=== PATIENT | female | born 1960 | race Caucasian/White ===

== ENCOUNTER → 2017-07-06 | Outpatient (CLI) | payer OTHER ==
--- NOTE | 2017-07-06 10:40 | RAD ---
Exam performed: Ultrasound Evaluation of the left neck. History: Patient haD a dental cleaning in january and the doctor felt a lump. Date of service: 07/06/17. Comparison: None available Discussion: Targeted sonographic evaluation of the left neck was performed and images are obtained. Numerous lymph nodes are seen in the left neck. There is a 0.7 x 0.6 x 2.3 cm normal-appearing lymph node in the area of concern in the left neck. There is also enlarged 1.2 x 0.9 x 0.3 cm lymph node posterior to the area of concern. There are several lymph nodes anterior to the area of concern, largest one measuring up to 1.1 cm. No abnormal fluid collections or masses seen. Impression: Multiple mildly enlarged lymph nodes seen in the left neck corresponding to the area of concern. These may be followed up clinically. Ultrasound follow-up may also be performed if these persist or enlarge in size.
== END | disposition home or self-care (01) ==
LOC: US 09:44
PROVIDERS: ATTEND Nurse Practitioner Family
DX: R59.0 Localized enlarged lymph nodes (principal); E11.65 Type 2 diabetes mellitus with hyperglycemia; E03.9 Hypothyroidism, unspecified; I10 Essential (primary) hypertension; E78.00 Pure hypercholesterolemia, unspecified; E55.9 Vitamin D deficiency, unspecified
CPT/HCPCS: 76536

== ENCOUNTER → 2017-08-11 | Outpatient (CLI) | payer OTHER ==
--- NOTE | 2017-08-11 15:00 | RAD ---
Bilateral lower extremity arterial ultrasound with MARIBEL measurements, 08/11/2017: History: Peripheral vascular disease, claudication Duplex evaluation of the major arteries in both lower extremities was performed including grayscale, color-flow and spectral Doppler analysis. Resting MARIBEL range were also obtained. There are mild to moderate scattered atherosclerotic plaques. The right common femoral artery demonstrates a triphasic Doppler waveform. The right superficial femoral and popliteal Doppler waveforms are also triphasic. No significant focal velocity elevation is seen to suggest high-grade focal stenosis. Patent anterior tibial, posterior tibial and peroneal arteries are present in the right calf demonstrating biphasic Doppler waveforms. The right dorsalis pedis waveform is also biphasic. A normal resting MARIBEL measurement of 1.1 was obtained on the right. The left common femoral artery demonstrates a triphasic Doppler waveform. The left superficial femoral and popliteal Doppler waveforms are predominantly triphasic. No significant focal velocity acceleration is seen in these vessels to suggest high-grade focal stenosis. Patent posterior tibial, anterior tibial and peroneal arteries are present in the left lower leg demonstrating predominantly biphasic Doppler waveforms. The left dorsalis pedis artery demonstrates a good biphasic Doppler waveform. The resting MARIBEL measurement on the left of 0.89 is at the lower limits of normal. IMPRESSION: 1. Mild to moderate scattered atherosclerotic plaquing without evidence of high-grade focal arterial stenosis. 2. Resting MARIBEL measurements of 1.1 on the right and 0.89 on the left.
== END | disposition home or self-care (01) ==
LOC: US 12:32
PROVIDERS: ATTEND Podiatrist Foot & Ankle Surgery
DX: I70.203 Unspecified atherosclerosis of native arteries of extremities, bilateral legs (principal); E11.65 Type 2 diabetes mellitus with hyperglycemia; I10 Essential (primary) hypertension; E03.9 Hypothyroidism, unspecified
CPT/HCPCS: 93922; 93925

== ENCOUNTER → 2017-08-13 | Outpatient (CLI) | payer OTHER ==
--- NOTE | 2017-08-13 12:27 | RAD ---
DATE: 08/13/2017 EXAM: MAMMO GISELE SCREENING BILATERAL HISTORY: Routine screening COMPARISON: 08/26/2016 This study was interpreted with the benefit of Computerized Aided Detection (CAD). The breast parenchyma shows scattered fibroglandular densities. Breast parenchyma level B. FINDINGS: 2-D and 3-D tomosynthesis imaging was performed in CC and MLO projections. A tiny lobulated nodule in the posterolateral aspect of the right breast is unchanged since multiple previous studies. No new or enlarging breast densities are seen. No suspicious microcalcifications are evident. IMPRESSION: There is no mammographic evidence of malignancy in either breast. BI-RADS CATEGORY: 2 BENIGN FINDING(S) RECOMMENDED FOLLOW-UP: 12M 12 MONTH FOLLOW-UP PQRS compliance statement: Patient information was entered into a reminder system with a target due date for the next mammogram. Mammography is a sensitive method for finding small breast cancers, but it does not detect them all and is not a substitute for careful clinical examination. A negative mammogram does not negate a clinically suspicious finding and should not result in delay in biopsying a clinically suspicious abnormality. "Our facility is accredited by the [employer] Mammography Program."
== END | disposition home or self-care (01) ==
LOC: MAMMO 11:07
PROVIDERS: ATTEND Family Medicine
DX: Z12.31 Encounter for screening mammogram for malignant neoplasm of breast (principal)
CPT/HCPCS: 77063; G0202; 77067

== ENCOUNTER → 2018-06-22 | Outpatient (CLI) | payer OTHER ==
--- NOTE | 2018-06-23 08:41 | RAD ---
DATE: 06/22/2018 EXAM: MAMMO GISELE DIANiki BILAT HISTORY: Left breast pain COMPARISON: 08/26/2015, 08/26/2016 and 08/13/2017 screening mammographic exam This study was interpreted with the benefit of Computerized Aided Detection (CAD ). Breast Density: FATTY The breast parenchyma is primarily fatty replaced. Breast parenchyma level density A. FINDINGS: Small focal asymmetries bilaterally are stable compared to prior exams. No new mass. No distortion or suspicious calcification cluster. IMPRESSION: BI-RADS CATEGORY: 2 BENIGN FINDING(S) RECOMMENDED FOLLOW-UP: PQRS compliance statement: Patient information was entered into a reminder system with a target due date 1 year for the next mammogram. Mammography is a sensitive method for finding small breast cancers, but it does not detect them all and is not a substitute for careful clinical examination. A negative mammogram does not negate a clinically suspicious finding and should not result in delay in biopsying a clinically suspicious abnormality. "Our facility is accredited by the [employer] Mammography Program." CASIMIRO
== END | disposition home or self-care (01) ==
LOC: MAMMO 13:06
PROVIDERS: ATTEND Obstetrics & Gynecology
DX: N64.4 Mastodynia (principal); E55.9 Vitamin D deficiency, unspecified; I10 Essential (primary) hypertension; E11.9 Type 2 diabetes mellitus without complications; E78.00 Pure hypercholesterolemia, unspecified; E03.9 Hypothyroidism, unspecified
CPT/HCPCS: 77066; G0279; 77062

== ENCOUNTER → 2018-06-28 | Outpatient (CLI) | payer OTHER ==
--- NOTE | 2018-06-28 16:59 | RAD ---
Neck ultrasound, 06/28/2018: HISTORY: Follow-up lymph nodes The left side of the neck and the submandibular region was examined as requested. Comparison is made to a study from 07/06/2017. Multiple small benign-appearing lymph nodes are present along the left side of the neck. The largest of these demonstrates a short axis dimension of only 4 mm. A larger node with somewhat abnormal architecture seen on the previous study is no longer evident. In the submandibular regions there are also multiple small lymph nodes which are not enlarged by short axis dimension criteria. The largest of these nodes lies near the midline and measures 18 x 11 x 6 mm. Its margins are smooth. It demonstrates a small cystic component centrally which may represent necrosis. IMPRESSION: Multiple left cervical and submandibular lymph nodes are noted without pathologic enlargement. Clinical surveillance is suggested. Electronically signed by: Mendez Wolfe MD (06/28/2018 4:55 PM) [facility]
== END | disposition home or self-care (01) ==
LOC: US 10:52
PROVIDERS: ATTEND Family Medicine
DX: R22.1 Localized swelling, mass and lump, neck (principal)
CPT/HCPCS: 76536

== ENCOUNTER → 2020-07-09 | Outpatient (CLI) | payer OTHER ==
--- NOTE | 2020-07-09 16:24 | RAD ---
EXAM: DUAL ENERGY X-RAY ABSORPTIOMETRY (DEXA). HISTORY: Postmenopausal screening. FINDINGS: The lowest measured T-score is 1.8 in the right femoral neck, based on a bone mineral density of 1.182 g/cm^2. Refer to the worksheets for full detail. No comparison examinations are available. IMPRESSION: Normal. Bone mineral density yields a T-score of -1.0 or greater. Fracture risk is low. FRAX was not calculated. METHODOLOGY: Dual energy x-ray absorptiometry was performed to measure bone mineral density. The following analysis is based on the 2019 Official Positions of the International Society for Clinical Densitometry: Measurements of the hips and the average of L1-L4 are preferred. When the spine and/or hip cannot be feasibly measured or interpreted, or in the setting of hyperparathyroidism, distal radial bone mineral density may be measured. The lumbar spine T-score is based on the average bone mineral density of L1-L4. In the setting of artifact or anatomic abnormality, some lumbar levels may be excluded, and the remaining levels used for calculation. A single lumbar level is not used for diagnosis, and if only a single level is available for assessment, another anatomic site will be used to assign a diagnosis. The hip T-score is based on the bone mineral density measurement of the femoral neck or total proximal femur of either side, whichever is lowest. Bilateral mean values are not used for diagnosis. The forearm T-score is derived from 33% of the distal radius of the nondominant forearm. For postmenopausal and perimenopausal women, and men age 50 or older, of all ethnic groups, T-scores are calculated through comparison of the current measurement with the NHANES III database standard for females aged 20-29 years. The lowest T-score of the evaluated anatomic sites is used to assign a diagnosis based on the World Health Organization densitometric classification. In premenopausal females and males younger than age 50, a Z-score is calculated based on population specific reference data for patient sex and self-reported ethnicity. Electronically signed by: Amanda Simons MD (07/09/2020 4:22 PM) [facility]
--- NOTE | 2020-07-10 14:25 | RAD ---
DATE: 07/09/2020 3:00 PM EXAM: MAMMO GISELE SCREENING BILATERAL HISTORY: Screening COMPARISON: 08/08/2019 Bilateral CC and MLO views of the breasts were performed. Bilateral breast tomosynthesis was performed in CC and MLO projections. This study was interpreted with the benefit of Computerized Aided Detection (CAD). FINDINGS: Breast Density: FATTY The Breast Parenchyma is primarily fatty replaced. Breast parenchyma level density A. No suspicious masses, microcalcifications or architectural distortion is present to suggest malignancy in either breast. The visualized axillae are unremarkable. IMPRESSION: No mammographic evidence of malignancy. BI-RADS CATEGORY: 1 NEGATIVE RECOMMENDED FOLLOW-UP: 12M 12 MONTH FOLLOW-UP Annual screening mammography is recommended, unless clinically indicated sooner based on symptoms or change in physical exam. PQRS compliance statement: Patient information was entered into a reminder system with a target due date for the next mammogram. Mammography is a sensitive method for finding small breast cancers, but it does not detect them all and is not a substitute for careful clinical examination. A negative mammogram does not negate a clinically suspicious finding and should not result in delay in biopsying a clinically suspicious abnormality. "Our facility is accredited by the [employer] Mammography Program."
== END ==
LOC: DXRAD 15:03
PROVIDERS: ATTEND Obstetrics & Gynecology
DX: Z12.31 Encounter for screening mammogram for malignant neoplasm of breast (principal); Z01.419 Encounter for gynecological examination (general) (routine) without abnormal findings; Z78.0 Asymptomatic menopausal state
CPT/HCPCS: 77063; 77067; 77080

== ENCOUNTER 2021-09-29 18:00 | Emergency (ER) | payer BC, OTHER ==
[~2021-09-29] VITALS: Ht 172.7 cm; Wt 127.3 kg
--- NOTE | 2021-09-29 19:53 | RAD ---
XR CHEST 1V History: Reason: SOB / Spl. Instructions: / History: Comparison: None. Findings: Mild ill-defined bibasilar opacities. No pleural effusion. No pneumothorax. Normal heart size. Impression: 1. Mild ill-defined bibasilar opacities, most likely atelectasis. If persistent clinical concern, re commend follow-up. Electronically signed by: Negrito Best DO (09/29/2021 7:50 PM) [facility]
[2021-09-29] MEDS ORDERED: AZIT250T6 PO (20:00)
[2021-09-29] MEDS ORDERED: DEXA4TAB63 PO (20:00)
[2021-09-29 20:02] VITALS: BP 124/55
[2021-09-29] MEDS ORDERED: AZITHROMYCIN 250 MG TABLET. PO ONE (20:15)
[2021-09-29] MEDS ORDERED: DEXAMETHASONE SOD PHOS 10 MG/ML VIAL. PO ONE (20:15)
--- NOTE | 2021-09-29 20:38 | PHYS DOC ---
Past History Additional Past Medical Histor: RBBB Past Surgical History: Cholecystectomy, Hysterectomy Alcohol Use: None General Adult EDM: Chief Complaint: NAUSEA/VOMITING/DIARRHEA HPI: HPI: 61-year-old female presents with fatigue, body aches, congestion, cough for the last 3 or 4 days. Patient had nasal congestion prior to this and was treated for a sinus infection with Augmentin. She is still taking this medication. She came in today because of the profound fatigue and cough. Review of Systems: Review of Systems: Constitutional: Denies fever or chills. Body aches, fatigue Eyes: Denies change in visual acuity HENT: Denies nasal congestion or sore throat Respiratory: Cough without significant shortness of breath Cardiovascular: Denies chest pain or edema GI: Denies abdominal pain, nausea, vomiting, bloody stools or diarrhea : Denies dysuria Musculoskeletal: Denies back pain or joint pain Integument: Denies rash Neurologic: Denies headache, focal weakness or sensory changes Endocrine: Denies polyuria or polydipsia Lymphatic: Denies swollen glands Psychiatric: Denies depression or anxiety Current Medications: Current Meds: Current Medications Medications (Trade) Dose Ordered Sig/Srinivas Start Time Stop Time Status Last Admin Dose Admin Azithromycin (Zithromax) 500 mg 1X ONCE 09/29/21 20:15 09/29/21 20:16 DC Dexamethasone Sodium Phosphate (Decadron) 10 mg 1X ONCE 09/29/21 20:15 09/29/21 20:16 DC Allergies: Allergies: Allergies Coded Allergies Type Severity Reaction Last Updated Verified Sulfa (Sulfonamide Antibiotics) Allergy Intermediate 09/29/21 Yes Physical Exam: PE: Constitutional: Well developed, well nourished, morbidly obese, no acute distress, non-toxic appearance. [] HENT: Normocephalic, atraumatic, bilateral external ears normal, oropharynx moist, no oral exudates, nose normal. [] Eyes: PERRLA, EOMI, conjunctiva normal, no discharge. [] Neck: Normal range of motion, no tenderness, supple, no stridor. [] Cardiovascular: Heart rate regular rhythm, no murmur [] Lungs & Thorax: Bilateral breath sounds clear to auscultation [] Abdomen: Bowel sounds normal, soft, no tenderness, no masses, no pulsatile masses. [] Skin: Warm, dry, no erythema, no rash. [] Back: No tenderness, no CVA tenderness. [] Extremities: No tenderness, no cyanosis, no clubbing, ROM intact, no edema. [] Neurologic: Alert and oriented X 3, normal motor function, normal sensory function, no focal deficits noted. [] Psychologic: Affect normal, judgement normal, mood normal. [] Current Patient Data: Vital Signs: Vital Signs Date Time Temp Pulse Resp B/P (MAP) Pulse Ox O2 Delivery O2 Flow Rate FiO2 09/29/21 20:02 98.5 98 18 124/55 (78) 99 Room Air EKG: EKG: [] Radiology/Procedures: Radiology/Procedures: [] Impressions: XR CHEST 1V History: Reason: SOB / Spl. Instructions: / History: Comparison: None. Findings: Mild ill-defined bibasilar opacities. No pleural effusion. No pneumothorax. Normal heart size. Impression: 1. Mild ill-defined bibasilar opacities, most likely atelectasis. If persistent clinical concern, recommend follow-up. Electronically signed by: Negrito Demarco DO (09/29/2021 7:50 PM) [facility] DICTATED AND SIGNED BY: NEGRITO DEMARCO DO DATE: 09/29/211949 CC: JACKI CORNEJO DO; RACH GREGG MD; EMERGENCY,DEPARTMENT ~MTH0 0 Heart Score: C/O Chest Pain: N/A Risk Factors: Risk Factors: DM, Current or recent (<one month) smoker, HTN, HLP, family history of CAD, obesity. Risk Scores: Score 0 - 3: 2.5% MACE over next 6 weeks - Discharge Home Score 4 - 6: 20.3% MACE over next 6 weeks - Admit for Clinical Observation Score 7 - 10: 72.7% MACE over next 6 weeks - Early Invasive Strategies Course & Med Decision Making: Course & Med Decision Making Pertinent Labs and Imaging studies reviewed. (See chart for details) The patient's chest x-ray showed some mild atelectasis but no definitive pneumonia. I will go and treat her with Decadron oral for 5 days. First dose in the ED. Her influenza is negative. This is likely COVID-19. PCR testing will be available in 24 to 48 hours. [] [place] Disclaimer: Damian Disclaimer: This electronic medical record was generated, in whole or in part, using a voice recognition dictation system. Departure Departure: Impression: Primary Impression: COVID-19 Disposition: 01 HOME / SELF CARE / HOMELESS Condition: STABLE Patient Instructions: Viral Syndrome Additional Instructions: You have been tested for or diagnosed with COVID-19. It is an infection caused by a new type of coronavirus. COVID-19 will cause cold-like or mild flu symptoms in most. It can cause more severe symptoms like problems breathing in some. There is no treatment for COVID-19. The body will clear the infection over time. Self-care will help to ease discomfort. Steps to Take: Self-Care Rest as needed. Healthy habits may help you feel better. Steps include: Choose healthy foods including fruits and vegetables. Drink water throughout the day. Get plenty of sleep each night. If you smoke, try to quit. It may ease breathing. Avoid alcohol. Keep Others Healthy The virus can spread to others. Droplets are released every time you sneeze or cough. The droplets can get into the mouth, nose, or eyes of people near you and lead to infection. To lower the chances of spreading COVID-19 to others: Stay at home until your doctor has said it is safe to leave. If you tested positive this will mean staying isolated until both of the following are true: At least 7 days have passed since the start of illness. You are free of fever for at least 72 hours without the use of medicine. During this time: - Avoid public areas, events, or transportation. Do not return to work or school until your doctor has said it is safe to do so. - Call ahead if you need to go to a medical center. Let them know you may have COVID-19. It will help them guide you where to go. They may also ask you to wear a facemask when you come to the office. - If you call for emergency medical services, let them know you may have COVID- 19. While at home: - Try to avoid close contact with others. Stay about 6 feet away. - If possible, spend most of your time in a separate room from others. - Use a face mask if you will be in close contact with others such as sharing a room or vehicle. - Have someone wipe down common surfaces in the home. Use household nuclear operations specialist every day on areas like doorknobs, counters, or sinks. - Cough or sneeze into a tissue. Throw the tissue away right after use. If a tissue is not available, cough or sneeze into your elbow. - Wash your hands often. Wash them after sneezing or coughing. Use soap and water and wash for at least 20 seconds. Alcohol based hand brush cleaner can be used if soap and water is not available. - Do not prepare food for others. Avoid sharing personal items like forks, spoons, or toothbrushes. - Avoid close contact with pets while you are sick. There is no evidence of the virus passing to pets. This is a safety step until more is known about this virus. Isolation can be frustrating. Social interaction can help. Keep in touch with friends and family through phone and tech options. You can still interact with others in your home, just keep a safe distance of about 6 feet. Follow-up: Your doctors office will check in with you to see if there are any changes in your health. You may be asked to keep track of symptoms to share with them. They will also let you know when you are clear to be in public again. Problems to Look Out For: Contact your doctor if your recovery is not going as you expect. Get emergency care if you have problems such as: - Trouble breathing - Nonstop chest pain or pressure - Changes in awareness, confusion, or problems waking - Lips or face have bluish color - Worsening of symptoms If you think you have an emergency, call for emergency medical services right away. [facility] Dexamethasone (Decadron) 4 Mg Tablet 1 TAB PO BID for COVID for 4 Days, #8 TAB 0 Refills Prov: JACKI CORNEJO DO 09/29/21 JACKI CORNEJO DO Sep 29, 2021 20:37
[2021-09-29 20:59] LABS: INFLUENZA A PATIENT NEGATIVE (NEGATIVE); INFLUENZA B PATIENT NEGATIVE (NEGATIVE)
== END 2021-09-29 21:40 | disposition home or self-care (01) ==
LOC: ER 18:00
DX: U07.1 COVID-19 (principal); Z88.2 Allergy status to sulfonamides
CPT/HCPCS: 71045; 87804; 99284; C9803; J1100; U0003